=== PATIENT | female | born 1980 | race Caucasian/White ===

== ENCOUNTER 2020-06-12 22:44 | Emergency (ER) | payer BC, OTHER ==
[2020-06-12] MEDS ORDERED: SODIUM CHLORIDE 0.9% 1,000 ML IV STA (23:03)
[2020-06-12 23:21] LABS: BASOPHILS % (AUTO) 0.6 %; EOSINOPHILS # (AUTO) 0.1 10^3/uL (0.0-0.7); EOSINOPHILS % (AUTO) 0.8 %; HCT - HEMATOCRIT 34.5 % (37.0-47.0); HGB - HEMOGLOBIN 10.4 g/dL (12.0-16.0); LYMPHOCYTES # (AUTO) 2.4 10^3/uL (1.5-3.5); LYMPHOCYTES % (AUTO) 37.3 %; MEAN CORPUSCULAR HEMOGLOBIN 24.2 pg (27.0-31.0); MEAN CORPUSCULAR HGB CONC 30.1 g/dL (32.0-36.0); MEAN CORPUSCULAR VOLUME 80.4 fL (81.0-99.0); MEAN PLATELET VOLUME 10.4 fL (7.9-10.8); MONOCYTES # (AUTO) 0.6 10^3/uL (0.0-1.0); MONOCYTES % (AUTO) 9.8 %; NEUTROPHILS # (AUTO) 3.3 10^3/uL (1.5-6.6); NEUTROPHILS % (AUTO) 51.3 %; PLT - PLATELET COUNT 261 10^3/uL (130-450); RED BLOOD COUNT 4.29 10^6/uL (4.20-5.40); RED CELL DISTRIBUTION WIDTH 15.9 % (12.0-15.0); WHITE BLOOD COUNT 6.4 x10^3/uL (4.8-10.8)
[2020-06-12 23:22] LABS: BILIRUBIN,URINE NEGATIVE (NEGATIVE); CLARITY,URINE CLEAR (CLEAR); GLUCOSE, URINE (UA) NEGATIVE (NEGATIVE); KETONES,URINE (UA) NEGATIVE (NEGATIVE); LEUKOCYTE ESTERASE, URINE NEGATIVE (NEGATIVE); NITRITE,URINE NEGATIVE (NEGATIVE); OCCULT BLOOD,URINE NEGATIVE (NEGATIVE); PROTEIN,URINE NEGATIVE (NEGATIVE); UROBILINOGEN,URINE 0.2 (NORMAL) E.U./dL (NORMAL)
[2020-06-12 23:34] LABS: ALBUMIN 4.4 g/dL (3.2-5.5); ALBUMIN/GLOBULIN RATIO 1.5 (1.0-2.2); BILIRUBIN,TOTAL 0.4 mg/dL (0.2-1.0); CALCIUM 9.6 mg/dL (8.5-10.3); CREATININE 0.7 mg/dL (0.4-1.0); POTASSIUM 3.5 mmol/L (3.5-5.0); TOTAL PROTEIN 7.4 g/dL (6.7-8.2)
--- OUTSIDE RECORDS SUMMARY | 2020-06-12 23:40 | EXTERNAL MEDICAL SUMMARY RPT | Continuity of Care Document ---
:1980 Demographics Phone Unavailable Preferred Language Unknown Marital Status Unknown Congregational Affiliation Unknown Race Unknown Ethnic Group Unknown Author Organization [facility] Address [address] [id number] Phone Social History date description facility [phone]
[2020-06-13] MEDS ORDERED: IOPAMIDOL-300 100 ML VIAL ONE (00:13)
[2020-06-13] MEDS ORDERED: IOPAMIDOL-300 100 ML VIAL IVP ONE (00:46)
[2020-06-13 01:12] VITALS: BP 112/76
--- NOTE | 2020-06-13 01:56 | ED Physician Documentation ---
PD HPI ABD PAIN - Stated complaint Stated Complaint: ABD PX - Chief complaint Chief Complaint: Abd Pain - History obtained from History obtained from: Patient - Additional information Additional information: Patient comes emergency department chief complaint of escalating left flank and mid quadrant pain for the last several days. Patient denies fevers, but has had a little bit of a chill part. She states that she has not had any nausea or vomiting. No dysuria. She states she has been slightly constipated but otherwise no bowel changes. Patient denies any urinary symptoms. She states that she rec ently took up running in addition to her normal working out. She has a history of ovarian cysts. No other complaints at this time. Review of Systems Ten Systems: 10 systems reviewed and negative Constitutional: reports: Reviewed and negative Eyes: reports: Reviewed and negative Ears: reports: Reviewed and negative Nose: reports: Reviewed and negative Throat: reports: Reviewed and negative Cardiac: reports: Reviewed and negative Respiratory: reports: Reviewed and negative GI: reports: Abdominal Pain. denies: Nausea, Vomiting : reports: Reviewed and negative. denies: Dysuria Skin: reports: Reviewed and negative Musculoskeletal: reports: Reviewed and negative Neurologic: reports: Reviewed and negative Psychiatric: reports: Reviewed and negative Endocrine: reports: Reviewed and negative Immunocompromised: reports: Reviewed and negative PD PAST MEDICAL HISTORY - Past Medical History Past Medical History: Yes GI: Other Other Past Medical History: Celiac's - Past Surgical History Past Surgical History: Yes General: Other /[employer]UCK [employer]: Tubal ligation, Other - Allergies Allergies/Adverse Reactions: Allergies Allergy/AdvReac Type Severity Reaction Status Date / Time acetaminophen [From Vicodin] Allergy Emesis Verified 06/12/20 22:49 hydrocodone [From Vicodin] Allergy Emesis Verified 06/12/20 22:49 - Social History Does the pt smoke?: No Smoking Status: Never smoker Does the pt drink ETOH?: No Does the pt have substance abuse?: No - Immunizations Immunizations are current?: Yes PD ED PE NORMAL - Vitals Vital signs reviewed: Yes - General General: Alert and oriented X 3, No acute distress - HEENT HEENT: PERRL - Neck Neck: Supple, no meningeal sign - Cardiac Cardiac: RRR, No murmur - Respiratory Respiratory: No respiratory distress, Clear bilaterally - Abdomen Abdomen: Soft, Non distended, Other (Moderate lower left lower quadrant tenderness, no rebound or guarding.) - Derm Derm: Warm and dry - Extremities Extremities: No deformity - Neuro Neuro: Alert and oriented X 3 - Psych Psych: Normal mood, Normal affect Results - Vitals Vitals: Vital Signs - 24 hr 06/12/20 06/12/20 06/13/20 22:49 22:52 01:12 Temperature 36.5 C 36.5 C Heart Rate 78 78 62 Respiratory 16 16 16 Rate Blood Pressure 138/91 H 138/91 H 112/76 O2 Saturation 100 100 100 Oxygen O2 Source Room air - Labs Labs: Laboratory Tests 06/12/20 06/12/20 06/12/20 23:08 23:15 23:15 WBC 6.4 RBC 4.29 Hgb 10.4 L Hct 34.5 L MCV 80.4 L MCH 24.2 L MCHC 30.1 L RDW 15.9 H Plt Count 261 MPV 10.4 Neut # (Auto) 3.3 Lymph # (Auto) 2.4 [place] # (Auto) 0.6 Eos # (Auto) 0.1 Baso # (Auto) 0.0 Absolute Nucleated RBC 0.00 Nucleated RBC % 0.0 Sodium 136 Potassium 3.5 Chloride 103 Carbon Dioxide 24 Anion Gap 9.0 BUN 10 Creatinine 0.7 Estimated GFR (MDRD) 93 Glucose 107 H Calcium 9.6 Total Bilirubin 0.4 AST 14 ALT 11 Alkaline Phosphatase 38 L Total Protein 7.4 Albumin 4.4 Globulin 3.0 Albumin/Globulin Ratio 1.5 Lipase 44 Urine Color YELLOW Urine Clarity CLEAR Urine pH 6.0 Ur Specific [place] [employer] 1.025 Urine Protein NEGATIVE Urine Glucose (UA) NEGATIVE Urine Ketones NEGATIVE Urine Occult Blood NEGATIVE Urine Nitrite NEGATIVE Urine Bilirubin NEGATIVE Urine Urobilinogen 0.2 (NORMAL) Ur Leukocyte Esterase NEGATIVE Ur Microscopic Review NOT INDICATED Urine Culture Comments NOT INDICATED PD MEDICAL DECISION MAKING - ED course Complexity details: reviewed results, re-evaluated patient, considered differential, d/w patient ED course: The patient was worked up with laboratory studies and urinalysis, which were unremarkable. CT scan of the abdomen pelvis was performed next and did not show any acute pathology in the left abdomen. Patient was found to have a corpus luteum cyst. We have discussed this could be causing some discomfort, but that the main issue is that in the waiting of the ovary can cause a greater tendency toward ovarian torsion. We have discussed the symptoms of this and the need to return to the emergency department immediately, should the symptoms arise. Departure - Departure Disposition: 01 Home, Self Care Clinical Impression: Ovarian cyst Qualifiers: Laterality: left Qualified Code(s): N83.202 - Unspecified ovarian cyst, left side Condition: Stable Instructions: ED Cyst Ovarian Comments: Your labs and urinalysis look good. CT scan of the abdomen and pelvis does not show diverticulitis or kidney stone. Your bowels look good. You do have a smaller left ovarian cyst, which may be causing some your pain, particularly since you have recently taken up running. Even a small cyst provides extra weight on the ovary, which is a very small organ. This in turn can exert extra weight on the ligaments that hold the ovary in place, which can cause inflammation and pain. The recent addition of running to your exercise regimen may be contributing to this. There is no evidence of a serious condition at this time. As we have discussed, the most emergent potential complication of an ovarian cyst is a torsion, or twisting of the ovary about the supportive ligaments and vessels, causing circulation to the ovarian tissue to be cut off. This will cause immediate, severe pain. A ruptured ovarian cyst can also cause sudden onset of fairly severe pain, but because of the potential for torsion, which is a surgical emergency, you should come to the emergency department immediately if you develop those symptoms. Otherwise, you may follow-up with your primary care physician as needed. If you develop gradually worsening or unremitting pain in the left lower abdomen or pelvis, you may consider following up with a gynecology specialist to discuss further management, including whether or not surgery would be a reasonable option. You may take your Aleve as needed for the pain. Discharge Date/Time: 06/13/20 02:03
--- NOTE | 2020-06-13 08:18 | CT Report ---
PROCEDURE: Abdomen/Pelvis W INDICATIONS: LLQ abd pain CONTRAST: IV CONTRAST: Isovue 300 ml: 100 PO CONTRAST: *NO PO CONTRAST TECHNIQUE: After the administration of nonionic IV contrast, 5 mm thick sections acquired from the diaphragms to the symphysis. 5 mm thick coronal and sagittal reformats were acquired. For radiation dose reducti on, the following was used: automated exposure control, adjustment of mA and/or kV according to russell ent size. COMPARISON: None. FINDINGS: Image quality: Excellent. ABDOMEN: Lung bases: Lung bases are clear. Heart size is normal. Solid organs: Liver and spleen are normal in size and enhancement. Gallbladder wall does not appear thickened. Biliary system is non dilated. Pancreas enhances normally. No adrenal nodules. Kidn eys demonstrate normal size and enhancement, without hydronephrosis. Peritoneum and bowel: In this patient with this given history, scrutiny is given to sigmoid colon an d the left lower quadrant of the abdomen. The sigmoid colon demonstrates an unremarkable appearance. Minimal diverticular formation is seen, without active diverticulitis. There is a moderate amount of stool seen within the colon. Bowel loops demonstrate normal wall thickness and caliber. No free fluid or air. A normal appendix is incidentally noted. Nodes and vessels: No retroperitoneal or mesenteric adenopathy by size criteria. Aorta and inferior vena cava are normal in size. Miscellaneous: No ventral hernias. PELVIS: Genitourinary: Bladder wall thickness is normal. The uterus demonstrates an unremarkable appearance . Within the left ovary, there is an apparent involuting hemorrhagic cyst that measures up to 2.4 cm. There is a mild amount of free fluid seen within the pelvis, which is considered to be within physio logic limits. Miscellaneous: No inguinal hernias or adenopathy. Bones: No suspicious bony lesions. No vertebral body compression fractures. There is focal L5-S1 de generative change seen. Milder degenerative changes are seen elsewhere. IMPRESSION: Left ovarian hemorrhagic cyst, which may be the cause of this patient's left lower quadr ant pain. Negative for diverticulitis. There is a moderate amount of stool seen within the colon. Please correlate with clinical constipatio n. Incidental note is made of: Focal L5-S1 degenerative change Normal appendix Note: No significant discrepancy from the preliminary report. Reviewed by: Jaleel Rivera MD on 06/13/2020 7:16 AM AKDT Approved by: Jaleel Rivera MD on 06/13/2020 7:16 AM DUNIA Station ID: [id number]
== END 2020-06-13 02:03 | disposition home or self-care (01) ==
LOC: ED 22:44
DX: N83.12 Corpus luteum cyst of left ovary (principal)
CPT/HCPCS: 36415; 74177; 80053; 81003; 83690; 85025; 99282; 99284; Q9967; 81001; 87086

== ENCOUNTER 2020-06-24 08:00 | Outpatient (CLI) | payer OTHER ==
[2020-06-25 20:33] LABS: CHLAMYDIA TRACHOMATIS DNA NEGATIVE (NEGATIVE); NEISSERIA GONORRHOEAE DNA NEGATIVE (NEGATIVE); TRICHOMONAS VAGINALIS DNA NEGATIVE (NEGATIVE)
== END 2020-06-24 23:59 | disposition home or self-care (01) ==
LOC: LAB.R 08:00
PROVIDERS: ATTEND Obstetrics & Gynecology
DX: Z11.3 Encounter for screening for infections with a predominantly sexual mode of transmission (principal)
CPT/HCPCS: 87491; 87591; 87661

== ENCOUNTER 2020-07-18 14:35 | Outpatient (CLI) | payer OTHER ==
--- NOTE | 2020-07-18 22:49 | Ultrasound Report ---
PROCEDURE: Pelvic w/Transvaginal INDICATIONS: LEFT SIDE OVARIAN CYST TECHNIQUE: Real-time scanning was performed of the pelvic organs, with image documentation. Additional endovagi nal scanning was necessary due to incomplete visualization of the adnexal and endometrial structures by transabdominal scanning. COMPARISON: CT abdomen and pelvis 06/13/2020. FINDINGS: No pathologic free abdominal or pelvic fluid. Uterus: Uterus is retroverted and normal in size at 10.6 x 5.7 x 4.8 cm, volume of 151 cc. No fibroi ds seen. The endometrium measures 4 mm in combined thickness. Ovaries: Within normal limits. Blood flow seen in both ovaries. Right ovary measures 3.6 x 1.4 x 1.2 cm, volume of 3 cc. Left ovary measures 2.6 x 2.7 x 1.5 cm, volume of 7 cc. Collapsed left ovarian cyst measuring 1.3 cm. (On prior CT this measured approximately 2.9 cm). IMPRESSION: Collapsed left ovarian cyst measuring 1.3 cm appears decrease in size. Likely a hemorrhagic cyst or c orpus luteum. Reviewed by: Jony Rosales MD on 07/18/2020 10:48 PM PDT Approved by: Jony Rosales MD on 07/18/2020 10:48 PM PDT Station ID: [id number]
== END 2020-07-18 14:36 | disposition home or self-care (01) ==
LOC: DI 14:35
PROVIDERS: ATTEND Obstetrics & Gynecology
DX: N83.202 Unspecified ovarian cyst, left side (principal)

== ENCOUNTER 2021-02-10 08:00 | Outpatient (CLI) | payer OTHER ==
--- NOTE | 2021-02-14 11:12 | Mammography Report ---
BILATERAL DIGITAL SCREENING MAMMOGRAM 3D/2D: 02/10/2021 CLINICAL: Routine screening. Comparison is made to exams dated: 12/18/2012 mammogram and 12/18/2012 ultrasound - [facility]. The tissue of both breasts is heterogeneously dense. This may lower the sensitivity of mammography. There is an irregular focal asymmetry with an indistinct margin in the right breast at 5 o'clock in t he retroareolar region. There also is a possible asymmetry in the right breast sub-areolar depth central to the nipple seen o n the craniocaudal view only. No other significant masses, calcifications, or other findings are seen in either breast. IMPRESSION: INCOMPLETE: NEEDS ADDITIONAL IMAGING EVALUATION The irregular focal asymmetry in the right breast at 5 o'clock in the retroareolar region is indeterm inate. A diagnostic mammogram and ultrasound is recommended. The possible asymmetry in the right breast sub-areolar depth central to the nipple seen on the cranio caudal view only is indeterminate. Additional views with possible ultrasound are recommended. This exam was interpreted at Station ID: Unknown. NOTE: For mammograms, a report in lay terms will be sent to the patient. Approximately 15% of breast malignancies will not be visualized mammographically. In the management of a palpable breast mass, a negative mammogram must not discourage biopsy of a clinically suspicious lesion. Electronically Signed By: Wilfred Funez M.D., jr/jordan:02/10/2021 09:27:44 Entry: - 02/14/2021 08:43:59 ACR BI-RADS Category 0: Incomplete 3340F PARENCHYMAL PATTERN: (D) - The breast(s) demonstrate(s) heterogeneously dense fibroglandular [place] ma. BI-RADS CATEGORY: (0) - 0 Unspecified - other [id number] Immediate follow-up LATERALITY: (B)
== END 2021-02-10 08:01 | disposition home or self-care (01) ==
LOC: DI 08:00
DX: Z12.31 Encounter for screening mammogram for malignant neoplasm of breast (principal); R92.8 Other abnormal and inconclusive findings on diagnostic imaging of breast

== ENCOUNTER 2021-03-07 08:46 | Outpatient (CLI) | payer OTHER ==
--- NOTE | 2021-03-08 08:17 | Ultrasound Report ---
LIMITED ULTRASOUND OF RIGHT BREAST: 03/07/2021 CLINICAL: Patient returns today to evaluate an asymmetry in the right breast. Comparison is made to exams dated: 03/07/2021 mammogram, 02/10/2021 mammogram, 12/18/2012 mammogram, and 12/18/2012 ultrasound - [facility]. Color flow ultrasound of the right breast 2 o'clock, and retroareolar regions was performed. Mayer sc willow images of the real-time examination were reviewed. There is a complicated cyst in the right breast central to the nipple in the retroareolar region. There also is a benign simple cyst in the right breast central to the nipple in the retroareolar loretta on. IMPRESSION: PROBABLY BENIGN The complicated cyst in the right breast central to the nipple in the retroareolar region is probably benign. Follow-up mammogram and ultrasound in 6 months is recommended. The simple cyst in the right breast central to the nipple in the retroareolar region is benign. A follow-up mammogram and an ultrasound in 6 months is recommended to demonstrate stability. This exam was interpreted at Station ID: [id number]. Electronically Signed By: Wilfred Funez M.D., jr/jordan:03/07/2021 10:16:32 Ultrasound BI-RADS: 3 Probably benign BI-RADS CATEGORY: (3) - 3 Mammo and [place] [id number] 6 month follow-up LATERALITY: (B)
--- NOTE | 2021-03-08 08:17 | Mammography Report ---
UNILATERAL RIGHT DIGITAL DIAGNOSTIC MAMMOGRAM 3D/2D: 03/07/2021 CLINICAL: Patient returns today to evaluate a focal asymmetry in the right breast. Comparison is made to exams dated: 02/10/2021 mammogram, 12/18/2012 mammogram, and 12/18/2012 [facility]. The tissue of right breast is heterogeneously dense. This may l ower the sensitivity of mammography. There is an irregular focal asymmetry with an indistinct margin in the right breast at 2 o'clock in t he retroareolar region. There also is a asymmetry in the right breast sub-areolar depth central to the nipple seen on the upholstered goods crafter niocaudal view only. No other significant masses or calcifications are seen in the breast. IMPRESSION: INCOMPLETE: NEEDS ADDITIONAL IMAGING EVALUATION The irregular focal asymmetry in the right breast at 2 o'clock in the retroareolar region is indeterm inate. A diagnostic mammogram and ultrasound is recommended. The asymmetry in the right breast sub-areolar depth central to the nipple seen on the craniocaudal vi ew only is indeterminate. Additional views with possible ultrasound are recommended. This exam was interpreted at Station ID: [id number]. NOTE: For mammograms, a report in lay terms will be sent to the patient. Approximately 15% of breast malignancies will not be visualized mammographically. In the management of a palpable breast mass, a negative mammogram must not discourage biopsy of a clinically suspicious lesion. Electronically Signed By: Wilfred Funez M.D. jr/:03/07/2021 10:17:04 ACR BI-RADS Category 0: Incomplete 3340F PARENCHYMAL PATTERN: (D) - The breast(s) demonstrate(s) heterogeneously dense fibroglandular paremile [place]ell[place]. BI-RADS CATEGORY: (0) - 0 Ultrasound [id number] Immediate follow-up LATERALITY: (B)
== END 2021-03-07 08:47 | disposition home or self-care (01) ==
LOC: DI 08:46
PROVIDERS: ATTEND Internal Medicine
DX: R92.8 Other abnormal and inconclusive findings on diagnostic imaging of breast (principal)

== ENCOUNTER 2023-02-26 12:29 | Outpatient (CLI) | payer OTHER ==
--- NOTE | 2023-02-27 10:46 | Mammography Report ---
BILATERAL DIGITAL DIAGNOSTIC MAMMOGRAM 3D/2D: 02/26/2023 CLINICAL: Patient returns for a 6 month follow up of the right breast, due for bilateral exam. Comparison is made to exams dated: 03/07/2021 mammogram and 02/10/2021 mammogram - [facility]. Both breasts are heterogeneously dense, which may obscure small masses (category c / 51-75% glandular tissue). There is a stable focal asymmetry in the right breast central to the nipple in the retroareolar regio n. No other significant masses, calcifications, or other findings are seen in either breast. IMPRESSION: INCOMPLETE: NEEDS ADDITIONAL IMAGING EVALUATION The stable focal asymmetry in the right breast is indeterminate. A targeted ultrasound of the right breast is recommended and will be performed immediately following this exam. Based on the Tyrer Cuzick model (a risk assessment model) the patients lifetime risk is 10.7% and he r 10 year risk is 1.7%. According to the ACR, ACS, and NCCN guidelines, an annual breast MRI exam kamille ng with mammogram is recommended if the patients lifetime risk is 20% or greater. This exam was interpreted at Station ID: [id number]. NOTE: For mammograms, a report in lay terms will be sent to the patient. Approximately 15% of breast malignancies will not be visualized mammographically. In the management of a palpable breast mass, a negative mammogram must not discourage biopsy of a clinically suspicious lesion. Electronically Signed By: Patricia Moss M.D. lk/:02/26/2023 13:07:13 ACR BI-RADS Category 0: Incomplete 3340F PARENCHYMAL PATTERN: (D) - The breast(s) demonstrate(s) heterogeneously dense fibroglandular paremile castellon. BI-RADS CATEGORY: (0) - 0 Ultrasound [id number] Immediate follow-up LATERALITY: (B)
--- NOTE | 2023-02-27 10:46 | Ultrasound Report ---
LIMITED ULTRASOUND OF RIGHT BREAST: 02/26/2023 CLINICAL: Follow-up of Right complicated cyst. Comparison is made to exams dated: 03/07/2021 ultrasound, 03/07/2021 mammogram, and 02/10/2021 mammogr [facility]. Color flow ultrasound of the right breast 2 o'clock region was performed on the areas of interest. G ray scale images of the real-time examination were reviewed. The complicated cyst in the right breast central to the nipple in the retroareolar region is decrease d in size. IMPRESSION: BENIGN There is no sonographic evidence of malignancy. The complicated cyst in the right breast is benign. Return to annual mammogram screening schedule is recommended. This exam was interpreted at Station ID: [id number]. Electronically Signed By: Patricia downing/:02/26/2023 13:20:52 Ultrasound BI-RADS: 2 Benign BI-RADS CATEGORY: (2) - 2 Mammogram [id number] return to screening LATERALITY: (B)
== END 2023-02-26 12:30 | disposition home or self-care (01) ==
LOC: DI 12:29
PROVIDERS: ATTEND Nurse Practitioner
DX: N60.01 Solitary cyst of right breast (principal); R92.333 Mammographic heterogeneous density, bilateral breasts